=== PATIENT | female | born 1975 | race Hispanic/Latino ===

== ENCOUNTER 2024-09-23 21:53 | Emergency (ER) | payer SELFPAY ==
[~2024-09-23] VITALS: Ht 152.4 cm; Wt 59.0 kg
[~2024-09-23 21:53] MED LIST: ACET-2079 PO; METH-1037 PO; MIRALAX PO; RANI300T4 PO; TRAM50TA2 PO; [UNRECOGNIZED DRUG - CODE] RC; thyroid medication PO
--- NOTE | 2024-09-23 21:57 | NUR ---
COVID, FLU AND STREP SWABS COLLECTED AND SENT FOR FUTURE ORDERS UA CUP PROVIDED
[2024-09-23] MEDS: morPHINE 4 MG SYG IVP ONE (22:30)
[2024-09-23] MEDS: ondanSETRON 4MG INJ IVP ONE (22:30)
[2024-09-23] MEDS: 0.9%NACL 1000ML 1,000 ML IV ONE (22:31)
--- NOTE | 2024-09-23 22:51 | HMCIMG ---
CT ABDOMEN/PELVIS W/O CONTRAST HISTORY: Right flank pain COMPARISON: None TECHNIQUE: Multiple sequential axial images of the abdomen and pelvis were obtained from the dome of the diaphragm through symphysis pubis. Patient was not given contrast through intravenous route. Oral contrast was not given. FINDINGS: No pleural effusion is seen bilaterally. There is no evidence of parenchymal disease or pulmonary nodule of the visualized lower lungs. Degenerative changes of the thoracolumbar spine are present. The heart is not enlarged. Liver measures 15 cm. The liver, spleen, adrenal glands and pancreas are unremarkable. There is no evidence of hydronephrosis bilaterally. No evidence of renal stone is seen. Fecal material is seen in the colon. There are normal size retroperitoneal and mesenteric lymph nodes. No ascites is seen. No CT evidence of acute appendicitis is seen. Pelvic sidewalls are symmetric bilaterally. Bladder is moderately distended. IMPRESSION: 1. Fecal material is seen in the colon. No CT evidence of acute appendicitis is seen. No hydronephrosis is seen. CT was performed with one or more following dose reduction techniques: automated exposure control, adjustment of the mA and kv according to patient's size, or use of a iterative reconstruction technique.
[2024-09-23 23:05] LABS: BASOPHILS # (AUTO) 0.02 K/uL (0.00-0.20); BASOPHILS % (AUTO) 0.2 % (0.0-5.0); HEMATOCRIT 37.6 % (36-48); IMMATURE GRANULOCYTE ABSOLUTE 0.04 K/uL (0-1); LYMPHOCYTES # (AUTO) 1.5 K/uL (1.0-4.8); LYMPHOCYTES % (AUTO) 13.4 % (21.0-51.0); MEAN CORPUSCULAR HEMOGLOBIN 27.8 pg (27.0-33.0); MEAN CORPUSCULAR HGB CONC 32.7 g/dL (32.0-36.0); MEAN CORPUSCULAR VOLUME 84.9 fL (79-99); MONOCYTES # (AUTO) 0.3 K/uL (0.1-1.0); MONOCYTES % (AUTO) 2.2 % (3.0-13.0); NEUTROPHILS # (AUTO) 9.5 K/uL (1.8-7.7); NEUTROPHILS % (AUTO) 83.8 % (40.0-77.0); PLATELET COUNT (AUTO) 309 K/uL (130-400); RED BLOOD CELL COUNT(AUTO) 4.43 MIL/uL (4.00-5.50); RED CELL DISTRIBUTION WIDTH 13.3 % (11.0-15.5); WHITE BLOOD COUNT (AUTO) 11.4 K/uL (4.8-10.8)
[2024-09-23 23:12] LABS: CREATININE 0.8 mg/dL (0.5-1.0); POTASSIUM 3.6 mmol/L (3.5-5.1)
[2024-09-23 23:15] LABS: SARS-CoV-2, RNA, NAAT NEGATIVE SARS CoV-2 (NEGATIVE)
[2024-09-23 23:24] LABS: INFLUENZA TYPE A Negative For Type A (NEGATIVE); INFLUENZA TYPE B Negative For Type B (NEGATIVE)
--- NOTE | 2024-09-24 00:58 | ERN ---
ED Note History of Present Illness Stated Complaint: FEVER, DEHYDRATION, BACK PAIN Chief Complaint: Fever Time Seen by MD: 21:58 Time Seen by Midlevel: 21:58 Dictation: The patient is a 49-year-old female with a history of hypertension, fibromyalgia, who presents to the emergency department with complaints of one week of right flank pain associated with nausea nonbloody vomiting. Patient reports a fever. Denies any diarrhea and reports constipation. Denies any urinary discomfort or hematuria. Allergies: Coded Allergies: diphenhydramine (Unverified Allergy, Severe, HIVES, 06/03/15) NSAIDS (Non-Steroidal Anti-Inflamma (Unverified Allergy, Unknown, 06/03/15) acetaminophen (Unverified Allergy, Unknown, 10/30/22) iodine (Unverified Allergy, Unknown, 06/03/15) iron (Unverified Allergy, Unknown, 06/03/15) ketorolac (Unverified Allergy, Unknown, 06/03/15) naproxen (Unverified Allergy, Unknown, 10/30/22) Home Meds Active Scripts Acetaminophen with Codeine (Acetaminophen-Cod #3 Tablet) 1 Each Tablet, 1-2 TAB PO Q6H PRN for SEVERE PAIN (7-10), #12 TAB 0 Refills Prov:ANIA CARRASCO MD 03/08/22 Polyethylene Glycol 3350 (Miralax/Glycolax Pwdr) 17 Gm/Dose Powder, 1 TBS PO DAILY, #1 BOTTLE Prov:RANDAL BAZAN MD 11/11/16 Ranitidine HCl (Ranitidine HCl) 300 Mg Tablet, 300 MG PO ACBKFST, #30 TAB 6 Refills Prov:RANDAL BAZAN MD 11/11/16 [thyroid medication] No Conflict Check, 0 PO, #0 0 Refills Prov:RANDAL BAZAN MD 11/11/16 Promethazine HCl (Phenergan) 12.5 Mg Supp.rect, 12.5 MG RC QID PRN for NAUSEA/VOMITING, #60 EA Prov:NACHO MCGRAW Jr., MD 06/13/15 Tramadol HCl (Ultram) 50 Mg Tab, 50 MG PO Q6H PRN for PAIN, #60 TAB Prov:NACHO MCGRAW Jr., MD 06/13/15 Methimazole (Tapazole) 10 Mg Tab, 5 MG PO TID, #90 TAB Prov:OFELIA BUSTAMANTE MD 06/04/15 Past Medical History Past Medical History: Fibromyalgia, Hypertension Surgical History: RN Note Reviewed/Agreed w/PFSH: Yes Review of System Dictation Constitutional: Negative for and weight loss positive for fever, chills Eyes: Negative for injury, pain,redness, and discharge ENT: Negative for injury,pain or swelling Cardiovascular: Negative for chest pain, palpitations, and edema Respiratory: Negative for shortness of breath, cough, and wheezing, Abdomen/GI: Negative for abdominal pain, diarrhea, and constipation positive for nausea and vomiting Back: Negative for injury and pain positive for right flank pain : Negative for injury, bleeding and discharge MS/Extremity: Negative for injury and deformity Skin: Negative for rash, and discoloration Neuro: Negative for headache, weakness, numbness, tingling, and seizure Psych: Negative for suicide ideation, homicidal ideation, and hallucinations Initial Vital Sign VS Vital Signs Date Time Temp Pulse Resp B/P (MAP) Pulse Ox O2 Delivery O2 Flow Rate FiO2 09/23/24 21:54 97.2 67 20 164/77 98 09/23/24 22:54 Room Air* 0 21 Physical Exam Dictation Vital Signs reviewed General Appearance: Alert, oriented x 3, no acute distress, well developed, nourished. Head and Face: non-traumatic. Eyes: PERRL, pink conjunctivas, eyelid no trauma, anterior chamber with arcus senilis. Ears: Pinnas intact and no signs of trauma or erythema ear canals clear and no discharge TM no erythema Nose: No discharge, no bleeding. Oropharynx: Mouth normal, tongue pink. pharynx clear,no erythema, tonsils no exudates, no abscesses noted, mucous membrane moist Neck: Supple, non-tender, no thyromegaly, no masses, no JVD, no bruits Breast:Deferred Chest:No tenderness, no crepitus, no paradoxical movement, no retractions Lungs:Clear, well-ventilated, symmetric, no rales, no wheezing, no rhonchi, no stridor, good breath sounds bilaterally Heart: Regular rate, regular rhythm, no murmur, no gallops Vascular: no peripheral edema, Abdomen: Soft, positive bowel sounds, nondistended, no guarding, nontender, no rebound, no masses no hepatomegaly, no splenomegaly, no Bergman's sign, no hernias. Rectal: Deferred Genital: Deferred Neurological: Normal speech, motor function intact, sensory function intact Musculoskeletal: Neck nontender, full range of motion, back nontender, full range of motion, Extremities: nontender, full range of motion Skin: Color pink, dry, no turgor, no rash, no lacerations, no abrasions, no contusions. Lymphatic: Deferred Results (Laboratory/Radiology) Laboratory/Radiology Laboratory Tests Test 09/23/24 22:00 09/23/24 22:50 09/24/24 00:49 Influenza Type A Antigen Negative For Type A Influenza Type B Antigen Negative For Type B SARS-CoV-2, RNA, NAAT NEGATIVE SARS CoV-2 White Blood Count 11.4 K/uL (4.8-10.8) H Red Blood Count 4.43 MIL/uL (4.00-5.50) Hemoglobin 12.3 g/dL (12.0-16.0) Hematocrit 37.6 % (36-48) Mean Corpuscular Volume 84.9 fL (79-99) Mean Corpuscular Hemoglobin 27.8 pg (27.0-33.0) Mean Corpuscular Hemoglobin Concent 32.7 g/dL (32.0-36.0) Red Cell Distribution Width 13.3 % (11.0-15.5) Platelet Count 309 K/uL (130-400) Mean Platelet Volume 11.1 fL (7.5-10.5) H Immature Granulocyte % (Auto) 0.4 % (0-1) Neutrophils (%) (Auto) 83.8 % (40.0-77.0) H Lymphocytes (%) (Auto) 13.4 % (21.0-51.0) L Monocytes (%) (Auto) 2.2 % (3.0-13.0) L Eosinophils (%) (Auto) 0.0 % (0.0-8.0) Basophils (%) (Auto) 0.2 % (0.0-5.0) Neutrophils # (Auto) 9.5 K/uL (1.8-7.7) H Lymphocytes # (Auto) 1.5 K/uL (1.0-4.8) Monocytes # (Auto) 0.3 K/uL (0.1-1.0) Eosinophils # (Auto) 0.00 K/uL (0.00-0.70) Basophils # (Auto) 0.02 K/uL (0.00-0.20) Absolute Immature Granulocyte (auto 0.04 K/uL (0-1) Nucleated Red Blood Cells 0.0 % (0.0-0.19) Sodium Level 136 mmol/L (136-145) Potassium Level 3.6 mmol/L (3.5-5.1) Chloride Level 101 mmol/L (101-111) Carbon Dioxide Level 29 mmol/L (21-32) Blood Urea Nitrogen 29 mg/dL (7-18) H Creatinine 0.8 mg/dL (0.5-1.0) Glomerular Filtration Rate Calc 89 mL/min (>90) Random Glucose 108 mg/dL (70-105) H Total Calcium 9.6 mg/dL (8.5-10.1) Urine Color COLORLESS (YELLOW) Urine Appearance CLOUDY (CLEAR) H Urine pH 5.5 (5.0-8.0) Urine Specific [place] 1.007 (1.001-1.031) Urine Protein NEGATIVE mg/dL (NEGATIVE) Urine Glucose (UA) NEGATIVE mg/dL (NEGATIVE) Urine Ketones NEGATIVE mg/dL (NEGATIVE) Urine Occult Blood SMALL (NEGATIVE) H Urine Nitrate NEGATIVE (NEGATIVE) Urine Bilirubin NEGATIVE mg/dL (NEGATIVE) Urine Urobilinogen 0.2 mg/dL (0.2-1.0) Urine Leukocyte Esterase 500 Uzma/uL (NEGATIVE) H Labs Reviewed?: Yes ED Course ED Course Orders Procedure Category Date Status Time Cbc With Differential LAB 09/23/24 Complete 22:15 0.9%Nacl 1000ml (Ns PHA 09/23/24 Complete 1000ml) 22:30 Morphine 4mg Syg PHA 09/23/24 Complete (Morphine 4mg Syg) 22:30 Ondansetron 4mg Inj PHA 09/23/24 Complete (Zofran 4mg Inj) 22:30 Ct Abdomen/Pelvis W/O CT 09/23/24 Resulted Contrast 22:15 Basic Metabolic Panel LAB 09/23/24 Complete 22:15 Urinalysis Profile LAB 09/23/24 In Process 22:15 Influenza Type A & B, LAB 09/23/24 Complete Rapid 22:52 Covid Rna Naat LAB 09/23/24 Complete 22:52 Culture Urine DEA 09/24/24 Logged 01:15 Ceftriaxone 1g Vial PHA 09/24/24 Transmitted (Rocephine 1g Inj) 01:30 Current Medications Medications (Trade) Dose Ordered Sig/Ish Route PRN Reason Start Time Stop Time Status Last Admin Dose Admin Morphine Sulfate (morPHINE 4MG SYG) 4 mg ONCE ONCE IVP 09/23/24 22:30 09/23/24 22:31 DC 09/23/24 22:30 Ondansetron HCl (zoFRAN 4MG INJ) 4 mg ONCE ONCE IVP 09/23/24 22:30 09/23/24 22:31 DC 09/23/24 22:30 Sodium Chloride 1,000 ml @ 0 mls/hr ONCE ONCE IV 09/23/24 22:30 09/23/24 22:31 DC 09/23/24 22:31 Vital Signs Date Time Temp Pulse Resp B/P (MAP) Pulse Ox O2 Delivery O2 Flow Rate FiO2 09/23/24 22:54 99.5 89 18 75/ 99 Room Air* 0 21 09/23/24 21:54 97.2 67 20 164/77 98 Medical Decision Making MDM The patient is a 49-year-old female with a history of hypertension, fibromyalgia, who presents to the emergency department with complaints of one week of right flank pain associated with nausea nonbloody vomiting. Patient reports a fever. Denies any diarrhea and reports constipation. Denies any urinary discomfort or hematuria. CBC showed mild leukocytosis, no anemia, chemistry showed GFR of 89, no electrolyte imbalance, urinalysis positive for leukocyte esterase patient will be treated with the antibiotics., CT abdomen showed fecal material in the colon, no appendicitis, no hydronephrosis. Patient reports improving in pain. Patient with a nontender abdomen, no acute distress , nontoxic appearance will be discharged to follow up with PCP. Differential diagnosis: Gastroenteritis, kidney stones, pyelonephritis, dehydration Need for hospitalization: Patient does not meet criteria for hospitalization. There are no social concerns with this patient. DX & DISP Disposition: Discharge Departure Impression: Primary Impression: Complicated UTI (urinary tract infection) Additional Impressions: Nausea and vomiting, Right flank pain, Leukocytosis Condition: Stable Scripts Ciprofloxacin HCl (Cipro) 500 Mg Tablet 1 TAB PO BID for 5 Days, #10 TAB 0 Refills Prov: TEODORA JIMÉNEZ 09/24/24 Additional Instructions: Please follow up with your primary doctor in 1-2 days. Take medications as prescribed. If symptoms worsen please return to ER. FOLLOW-UP WITH PRIMARY CARE PROVIDER IN 1 TO 2 DAYS. TAKE MEDICATIONS DIRECTED HERE IN THE EMERGENCY ROOM. OKAY TO CONTINUE HOME MEDICATIONS UNLESS OTHERWISE DISCUSSED DURING YOUR VISIT IN THE EMERGENCY ROOM TODAY. RETURN TO YOUR NEAREST EMERGENCY ROOM IF SYMPTOMS WORSEN OR IF THERE IS NO IMPROVEMENT. CALL 911 IF YOU NEED IMMEDIATE ASSISTANCE. TAKE TYLENOL OR MOTRIN OVER -THE-COUNTER NEEDED AND IF NO CONTRAINDICATIONS ARE PRESENT. INCREASE ORAL HYDRATION. A WOUND CULTURE OR URINE CULTURE WAS ORDERED HERE IN THE EMERGENCY ROOM DEPARTMENT PLEASE FOLLOW-UP WITH PRIMARY CARE PROVIDER AND ADVISE THEM TO GET REPEAT PORTS FROM OUR FACILITY. IF YOU HAD ANY NICOLE WRAP/SPLINTS THAT WERE APPLIED HERE, PLEASE DO NOT REMOVE THEM UNTIL YOU SEE YOUR PRIMARY CARE OR SPECIALTY. Referrals: KARLA ANDREWS (PCP) Time of Disposition: 01:25 I have reviewed the case, and I agree with, Diagnosis and Plan TEODORA JIMÉNEZ Sep 24, 2024 00:58
[2024-09-24 00:59] LABS: APPEARANCE,URINE CLOUDY (CLEAR); BILIRUBIN,URINE NEGATIVE (NEGATIVE); COLOR,URINE COLORLESS (YELLOW); GLUCOSE, URINE (UA) NEGATIVE (NEGATIVE); KETONES,URINE NEGATIVE (NEGATIVE); LEUKOCYTE ESTERASE ,URINE 500 Leu/uL (NEGATIVE); NITRATE,URINE NEGATIVE (NEGATIVE); OCCULT BLOOD,URINE SMALL (NEGATIVE); PH,URINE 5.5 (5.0-8.0); PROTEIN,URINE NEGATIVE (NEGATIVE); UROBILINOGEN,URINE 0.2 mg/dL (0.2-1.0)
[2024-09-24 01:14] LABS: ADD UA MICROSCOPIC YES
[2024-09-24 01:15] LABS: BACTERIA,URINE RARE /HPF (None Seen); MUCUS,URINE RARE LPF (None Seen); NON-SQUAMOUS EPITHELIAL CELL 2 /HPF (0-2); SQUAMOUS EPITHELIAL CELL,UR MOD /HPF (0-2); WBC,URINE 51-100 /HPF (0-1)
[2024-09-24] MEDS ORDERED: CIPR-278 PO (01:24)
[2024-09-24] MEDS: cefTRIAXone 1G VIAL IVPB ONE (01:29)
[2024-09-24 01:38] VITALS: BP 152/65; PULSE 89; RESP 18; TEMP 99.2; O2SAT 98
== END 2024-09-24 01:40 | disposition home or self-care (01) ==
LOC: EDH 21:53
DX: N39.0 Urinary tract infection, site not specified (principal); R11.2 Nausea with vomiting, unspecified; D72.829 Elevated white blood cell count, unspecified; I10 Essential (primary) hypertension; M79.7 Fibromyalgia; Z20.822 Contact with and (suspected) exposure to COVID-19; Z79.899 Other long term (current) drug therapy; Z88.6 Allergy status to analgesic agent; Z88.8 Allergy status to other drugs, medicaments and biological substances; Z91.041 Radiographic dye allergy status
CPT/HCPCS: 99285; 74176; 96374; 87635; 96375 ×2; 80048; 85025; 87086 ×2; 87186; 87804 ×2; 81001; 36415; J7030; J2405; J2270; J0696